=== PATIENT | male | born 1960 | race Caucasian/White ===

== ENCOUNTER 2021-03-09 12:33 | Emergency (ER) | payer MEDICAID ==
[~2021-03-09] VITALS: Ht 172.7 cm; Wt 82.0 kg
[2021-03-09] MEDS ORDERED: IBUPROFEN 600MG TABLET PO STA (13:55)
[2021-03-09 15:54] VITALS: BP 105/49
[2021-03-09] MEDS ORDERED: NAPR-681 PO (16:55)
[2021-03-09] MEDS ORDERED: CEPH500C2 PO (16:55)
== END 2021-03-09 17:27 | disposition home or self-care (01) ==
LOC: ER 12:33
DX: M70.31 Other bursitis of elbow, right elbow (principal); E11.9 Type 2 diabetes mellitus without complications
CPT/HCPCS: 73080; 73090; 99284; A4565